=== PATIENT | male | born 1990 | race Caucasian/White ===

== ENCOUNTER 2024-02-24 13:45 | Emergency (ER) | payer BC ==
[2024-02-24 15:19] LABS: HEMATOCRIT 37.3 % (42.0-52.0); HEMOGLOBIN 13.5 g/dL (14.0-18.0); MEAN CORPUSCULAR HEMOGLOBIN 28.1 pg (28.0-32.0); MEAN CORPUSCULAR HGB CONC 36.2 g/dL (32.0-36.0); MEAN CORPUSCULAR VOLUME 77.5 fL (83.0-99.0); RED BLOOD CELL COUNT 4.81 M/uL (4.52-5.90)
[2024-02-24 15:25] LABS: INR 1.01 (0.86-1.11)
[2024-02-24 15:47] LABS: A/G RATIO 1.1 (0.9-1.6); ALBUMIN 3.4 g/dL (3.4-5.0); BILIRUBIN TOTAL 0.4 mg/dL (0.2-1.0); CALCIUM 8.2 mg/dL (8.5-10.1); CARBON DIOXIDE,CO2 27.2 mmol/L (21.0-32.0); EST CRCL DRUG DOSING (CG) 122.16 mL/min; POTASSIUM,K 3.5 mmol/L (3.5-5.1); PROTEIN TOTAL,TP 6.5 g/dL (6.4-8.2)
[2024-02-24 16:02] LABS: PLATELET COUNT,PLT 1 K/uL (150-400)
[2024-02-24 16:08] LABS: WHITE BLOOD CELL COUNT,WBC 4.44 K/uL (3.9-11.3)
[2024-02-24] MEDS: methylPREDNISolone Sodium Succinate 125 MG/2 ML SDV IVPUSH ONE (17:13)
== END 2024-02-24 17:36 | disposition left against medical advice (07) ==
LOC: MW.ED 13:45
DX: R23.3 Spontaneous ecchymoses (principal); Z86.2 Personal history of diseases of the blood and blood-forming organs and certain disorders involving the immune mechanism
CPT/HCPCS: 36415; 80053; 85025; 85610; 86850; 86900; 86901; 96374; 99283; J2919